=== PATIENT | female | born 1950 | race Caucasian/White ===

== ENCOUNTER → 2017-08-27 | Outpatient (CLI) | payer MEDICARE ==
[~2017-08-27] MED LIST: ATOR20TA65 PO; CYCL5TAB PO; DULO30CA2 PO; FLUTICASONE NASAL; IBUP-2077 PO; LEVO100 PO; LEVO500T2 PO; MONT10TA24 PO; PANT40TA25 PO
== END | disposition home or self-care (01) ==
LOC: SHCH 10:00
PROVIDERS: ATTEND Internal Medicine Cardiovascular Disease
DX: I65.23 Occlusion and stenosis of bilateral carotid arteries (principal); I63.9 Cerebral infarction, unspecified
CPT/HCPCS: 93880

== ENCOUNTER 2017-09-13 17:06 | Emergency (ER) | payer MEDICARE ==
[2017-09-13 17:55] LABS: BASOPHILS % (AUTO) 0.7 % (0.0-5.0); EOSINOPHILS % (AUTO) 3.8 % (0.0-8.0); HEMATOCRIT 35.7 % (36-48); LYMPHOCYTES % (AUTO) 33.1 % (21.0-51.0); MEAN CORPUSCULAR HEMOGLOBIN 32.8 pg (27.0-33.0); MEAN CORPUSCULAR HGB CONC 34.9 g/dL (32.0-36.0); MEAN CORPUSCULAR VOLUME 94.1 fL (79-99); MONOCYTES % (AUTO) 7.6 % (3.0-13.0); NEUTROPHILS % (AUTO) 54.8 % (40.0-77.0); PLATELET COUNT (AUTO) 158 K/uL (130-400); RED BLOOD CELL COUNT(AUTO) 3.79 MIL/uL (4.00-5.50); RED CELL DISTRIBUTION WIDTH 12.7 % (11.0-15.5); WHITE BLOOD COUNT (AUTO) 5.2 K/uL (4.8-10.8)
[2017-09-13 18:05] LABS: CREATININE 0.8 mg/dL (0.5-1.5); POTASSIUM 3.7 mmol/L (3.5-5.1)
[2017-09-13 18:07] LABS: PARTIAL THROMBOPLASTIN TIME 25.4 SEC (26.3-35.5); PROTHROMBIN TIME 10.5 SEC (9.6-11.6)
[2017-09-13 18:31] LABS: ALBUMIN 3.6 g/dL (3.5-5.0); BILIRUBIN,TOTAL 0.3 mg/dL (0.2-1.0); CREATINE KINASE MB 1.2 ng/mL (0.5-3.6); TOTAL PROTEIN, SERUM 7.6 g/dL (6.0-8.3)
== END 2017-09-13 19:56 | disposition home or self-care (01) ==
LOC: EDH 17:06
DX: R42 Dizziness and giddiness (principal); R05 Cough; M19.90 Unspecified osteoarthritis, unspecified site; E78.5 Hyperlipidemia, unspecified; R79.1 Abnormal coagulation profile; Z98.890 Other specified postprocedural states; Z88.2 Allergy status to sulfonamides; Z88.8 Allergy status to other drugs, medicaments and biological substances
CPT/HCPCS: 36415; 71045; 80053; 82550; 82553; 84484; 85025; 85610; 85730; 93005

== ENCOUNTER 2018-04-06 09:55 | Emergency (ER) | payer MEDICARE ==
[~2018-04-06 09:55] MED LIST changes: +ACET-2743 PO; -LEVO500T2 PO; +LEVO75 PO; +LOSA25TA16 PO
== END 2018-04-06 10:17 | disposition home or self-care (01) ==
LOC: EDH 09:55
DX: H05.223 Edema of bilateral orbit (principal); I10 Essential (primary) hypertension; E11.9 Type 2 diabetes mellitus without complications; E78.5 Hyperlipidemia, unspecified; M19.90 Unspecified osteoarthritis, unspecified site; Z88.2 Allergy status to sulfonamides; Z88.6 Allergy status to analgesic agent; Z91.011 Allergy to milk products; Z91.013 Allergy to seafood; Z87.891 Personal history of nicotine dependence
CPT/HCPCS: 99282

== ENCOUNTER 2018-09-17 15:58 | Emergency (ER) | payer MEDICARE ==
[~2018-09-17 15:58] MED LIST changes: -LOSA25TA16 PO; +LOSA25TA41 PO
[2018-09-17 16:41] LABS: APPEARANCE,URINE Clear (CLEAR); BILIRUBIN,URINE Negative (NEGATIVE); COLOR,URINE Yellow (YELLOW); GLUCOSE, URINE (UA) Negative (NEGATIVE); KETONES,URINE Negative (NEGATIVE); LEUKOCYTE ESTERASE ,URINE Small (NEGATIVE); NITRATE,URINE Negative (NEGATIVE); OCCULT BLOOD,URINE Negative (NEGATIVE); PH,URINE 5.5 (5.0-8.0); PROTEIN,URINE Negative (NEGATIVE)
[2018-09-17 16:51] LABS: BASOPHILS % (AUTO) 0.6 % (0.0-5.0); EOSINOPHILS % (AUTO) 1.7 % (0.0-8.0); HEMATOCRIT 35.8 % (36-48); LYMPHOCYTES % (AUTO) 29.3 % (21.0-51.0); MEAN CORPUSCULAR HEMOGLOBIN 32.5 pg (27.0-33.0); MEAN CORPUSCULAR HGB CONC 34.2 g/dL (32.0-36.0); MEAN CORPUSCULAR VOLUME 95.2 fL (79-99); MONOCYTES % (AUTO) 5.8 % (3.0-13.0); NEUTROPHILS % (AUTO) 62.6 % (40.0-77.0); NUCLEATED RED BLOOD CELLS 0.1 % (0.0-0.19); PLATELET COUNT (AUTO) 157 K/uL (130-400); RED BLOOD CELL COUNT(AUTO) 3.76 MIL/uL (4.00-5.50); RED CELL DISTRIBUTION WIDTH 13.1 % (11.0-15.5); WHITE BLOOD COUNT (AUTO) 5.9 K/uL (4.8-10.8)
[2018-09-17 16:53] LABS: BACTERIA,URINE None Seen /HPF (None Seen); RBC,URINE None Seen /HPF (0-1); RENAL EPITHELIAL CELLS,URINE Rare /HPF (None Seen); SQUAMOUS EPITHELIAL CELL,UR 0-2 /HPF (0-2); TRANSITIONAL EPI CELLS,URINE Few /HPF (None Seen); WBC,URINE 0-1 /HPF (0-1)
[2018-09-17 17:02] LABS: CARBON DIOXIDE 29 mmol/L (21-32); CHLORIDE 105 mmol/L (101-111); CREATININE 0.9 mg/dL (0.5-1.5); GLOMERULAR FILTR. RATE CALC 67 mL/min (>60); GLUCOSE,RANDOM 158 mg/dL (70-105); POTASSIUM 3.6 mmol/L (3.5-5.1); SODIUM SERUM 141 mmol/L (136-145); UREA NITROGEN, BLOOD 7 mg/dL (7-18)
[2018-09-17 17:07] LABS: ALANINE AMINOTRANSFERASE 17 U/L (12-78); ALBUMIN 3.6 g/dL (3.5-5.0); ASPARTATE AMINOTRANSFERASE 18 U/L (10-37); BILIRUBIN,TOTAL 0.7 mg/dL (0.2-1.0); TOTAL PROTEIN, SERUM 7.2 g/dL (6.0-8.3)
[2018-09-17 17:43] LABS: LIPASE < 50 U/L (114-286)
== END 2018-09-17 19:01 | disposition home or self-care (01) ==
LOC: EDH 15:58
DX: E11.65 Type 2 diabetes mellitus with hyperglycemia (principal); N39.0 Urinary tract infection, site not specified; R05 Cough; E78.5 Hyperlipidemia, unspecified; I10 Essential (primary) hypertension; M19.90 Unspecified osteoarthritis, unspecified site; J45.909 Unspecified asthma, uncomplicated; Z88.2 Allergy status to sulfonamides; Z91.013 Allergy to seafood; Z91.011 Allergy to milk products; Z88.8 Allergy status to other drugs, medicaments and biological substances; Z98.890 Other specified postprocedural states; Z87.891 Personal history of nicotine dependence; Z79.899 Other long term (current) drug therapy
CPT/HCPCS: 36415; 71045; 80053; 81001; 82948; 83690; 84484; 85025; 93005

== ENCOUNTER 2018-12-14 14:29 | Emergency (ER) | payer MEDICARE ==
[2018-12-14] MEDS ORDERED: SODIUM CHLORIDE 0.9% 1000ML 1,000 ML IV ONE (15:34)
[2018-12-14 15:35] LABS: APPEARANCE,URINE Clear (CLEAR); BILIRUBIN,URINE Negative (NEGATIVE); COLOR,URINE Yellow (YELLOW); GLUCOSE, URINE (UA) Negative (NEGATIVE); KETONES,URINE Negative (NEGATIVE); LEUKOCYTE ESTERASE ,URINE Moderate (NEGATIVE); NITRATE,URINE Negative (NEGATIVE); OCCULT BLOOD,URINE Trace (NEGATIVE); PROTEIN,URINE Negative (NEGATIVE); UROBILINOGEN,URINE 0.2 mg/dL (0.2-1.0)
[2018-12-14] MEDS ORDERED: DiphenhydrAMINE HCL 50 MG/ML VIAL ONE (15:36)
[2018-12-14] MEDS ORDERED: ONDANSETRON HCL 4 MG/2 ML VIAL ONE (15:36)
[2018-12-14 15:44] LABS: BASOPHILS % (AUTO) 0.6 % (0.0-5.0); EOSINOPHILS % (AUTO) 2.8 % (0.0-8.0); HEMATOCRIT 35.5 % (36-48); LYMPHOCYTES % (AUTO) 36.3 % (21.0-51.0); MEAN CORPUSCULAR HEMOGLOBIN 32.9 pg (27.0-33.0); MEAN CORPUSCULAR HGB CONC 34.8 g/dL (32.0-36.0); MEAN CORPUSCULAR VOLUME 94.6 fL (79-99); MONOCYTES % (AUTO) 6.3 % (3.0-13.0); PLATELET COUNT (AUTO) 147 K/uL (130-400); RED BLOOD CELL COUNT(AUTO) 3.75 MIL/uL (4.00-5.50); RED CELL DISTRIBUTION WIDTH 13.1 % (11.0-15.5); WHITE BLOOD COUNT (AUTO) 5.2 K/uL (4.8-10.8)
[2018-12-14 16:02] LABS: BACTERIA,URINE Rare /HPF (None Seen); RBC,URINE 0-1 /HPF (0-1); SQUAMOUS EPITHELIAL CELL,UR Rare /HPF (0-2)
[2018-12-14 16:03] LABS: MUCUS,URINE Rare LPF (None Seen)
[2018-12-14 16:07] LABS: CREATININE 0.8 mg/dL (0.5-1.5); POTASSIUM 3.8 mmol/L (3.5-5.1)
[2018-12-14 16:11] LABS: ALBUMIN 3.9 g/dL (3.5-5.0); BILIRUBIN,DIRECT 0.2 mg/dL (0.0-0.3); BILIRUBIN,TOTAL 0.7 mg/dL (0.2-1.0); TOTAL PROTEIN, SERUM 7.2 g/dL (6.0-8.3)
== END 2018-12-14 18:27 | disposition home or self-care (01) ==
LOC: EDH 14:29
DX: R42 Dizziness and giddiness (principal); R53.1 Weakness; I10 Essential (primary) hypertension; M19.90 Unspecified osteoarthritis, unspecified site; E78.5 Hyperlipidemia, unspecified; E11.9 Type 2 diabetes mellitus without complications; Z88.2 Allergy status to sulfonamides; Z91.013 Allergy to seafood; Z91.011 Allergy to milk products; Z88.8 Allergy status to other drugs, medicaments and biological substances
CPT/HCPCS: 36415; 80048; 80076; 81001; 84484; 85025; 93005; 96361; 96374; 96375; 99285; J1200; J2405; J7030

== ENCOUNTER 2020-08-20 13:39 | Emergency (ER) | payer OTHER, MEDICARE ==
[~2020-08-20 13:39] MED LIST changes: -ACET-2743 PO; -CYCL5TAB PO; -FLUTICASONE NASAL; +GLIP5TAB11 PO; -LEVO100 PO; +LEVO500T2 PO; +METF-446 PO; -MONT10TA24 PO; -PANT40TA25 PO; +PANT40TA54 PO
[2021-01-10] MEDS ORDERED: LEVO500T90 PO (18:46)
== END 2020-08-20 14:28 | disposition home or self-care (01) ==
LOC: EDH 13:39
DX: E11.9 Type 2 diabetes mellitus without complications (principal); Z76.0 Encounter for issue of repeat prescription; I10 Essential (primary) hypertension; E78.5 Hyperlipidemia, unspecified; M19.90 Unspecified osteoarthritis, unspecified site; Z88.2 Allergy status to sulfonamides; Z91.013 Allergy to seafood; Z91.011 Allergy to milk products; Z88.8 Allergy status to other drugs, medicaments and biological substances

== ENCOUNTER 2021-01-10 16:11 | Emergency (ER) | payer MEDICARE ==
[~2021-01-10] VITALS: Ht 165.1 cm; Wt 106.6 kg
[2021-01-10 16:13] VITALS: BP 95/77
[2021-01-10] MEDS ORDERED: ACETAMINOPHEN WITH CODEINE 1 TAB TAB PO ONE (17:00)
[2021-01-10] MEDS ORDERED: ALBUTEROL INHALER 90MCG/INH IH PRN (17:00)
[2021-01-10 17:05] LABS: BASOPHILS % (AUTO) 0.2 % (0.0-5.0); EOSINOPHILS % (AUTO) 0.2 % (0.0-8.0); HEMATOCRIT 34.1 % (36-48); LYMPHOCYTES % (AUTO) 14.6 % (21.0-51.0); MEAN CORPUSCULAR HEMOGLOBIN 32.6 pg (27.0-33.0); MEAN CORPUSCULAR HGB CONC 33.7 g/dL (32.0-36.0); MEAN CORPUSCULAR VOLUME 96.6 fL (79-99); MONOCYTES % (AUTO) 5.7 % (3.0-13.0); NEUTROPHILS % (AUTO) 78.6 % (40.0-77.0); PLATELET COUNT (AUTO) 199 K/uL (130-400); RED BLOOD CELL COUNT(AUTO) 3.53 MIL/uL (4.00-5.50); WHITE BLOOD COUNT (AUTO) 13.7 K/uL (4.8-10.8)
[2021-01-10 17:30] LABS: B-TYPE NATRIURETIC PEPTIDE 79 pg/mL (0-100)
[2021-01-10 17:39] LABS: ALBUMIN 2.8 g/dL (3.5-5.0); BILIRUBIN,TOTAL 1.9 mg/dL (0.2-1.0); CREATININE 0.7 mg/dL (0.5-1.5); POTASSIUM 3.8 mmol/L (3.5-5.1); TOTAL PROTEIN, SERUM 7.2 g/dL (6.0-8.3)
[2021-01-10] MEDS ORDERED: CEFTRIAXONE 1G VIAL IVP ONE (18:00)
[2021-01-10] MEDS ORDERED: LEVO500T89 PO (18:46)
[2021-01-10] MEDS ORDERED: D-ME1POW16 PO (18:46)
[2021-01-10] MEDS ORDERED: AZIT500T PO (18:46)
[2021-01-10 19:07] VITALS: BP 120/62
== END 2021-01-10 19:22 | disposition home or self-care (01) ==
LOC: EDH 16:11
DX: J18.9 Pneumonia, unspecified organism (principal); J45.909 Unspecified asthma, uncomplicated; E11.9 Type 2 diabetes mellitus without complications; E78.00 Pure hypercholesterolemia, unspecified; I10 Essential (primary) hypertension; E03.9 Hypothyroidism, unspecified; Z20.822 Contact with and (suspected) exposure to COVID-19; Z88.2 Allergy status to sulfonamides; Z91.011 Allergy to milk products; Z91.030 Bee allergy status; Z88.8 Allergy status to other drugs, medicaments and biological substances; Z79.84 Long term (current) use of oral hypoglycemic drugs; Z79.899 Other long term (current) drug therapy
CPT/HCPCS: 36415; 71045; 80053; 83605; 83880; 84484; 85025; 87040 ×2; 87635; 87804 ×2; 87880; 99284; C9803

== ENCOUNTER 2023-12-14 16:12 | Emergency (ER) | payer MEDICARE, MEDICAID ==
[~2023-12-14] VITALS: Ht 165.1 cm; Wt 94.8 kg
[~2023-12-14 16:12] MED LIST changes: +AZIT500T PO; +D-ME1POW16 PO; -GLIP5TAB11 PO; +GLIP5TAB15 PO; +LEVO-70 PO
[2023-12-14 16:38] LABS: BASOPHILS # (AUTO) 0.05 K/uL (0.00-0.20); BASOPHILS % (AUTO) 0.7 % (0.0-5.0); EOSINOPHILS # (AUTO) 0.24 K/uL (0.00-0.70); EOSINOPHILS % (AUTO) 3.5 % (0.0-8.0); HEMATOCRIT 33.7 % (36-48); IMMATURE GRANULOCYTE ABSOLUTE 0.02 K/uL (0-1); LYMPHOCYTES # (AUTO) 2.8 K/uL (1.0-4.8); LYMPHOCYTES % (AUTO) 39.9 % (21.0-51.0); MEAN CORPUSCULAR HEMOGLOBIN 32.7 pg (27.0-33.0); MEAN CORPUSCULAR HGB CONC 34.4 g/dL (32.0-36.0); MEAN CORPUSCULAR VOLUME 94.9 fL (79-99); MONOCYTES # (AUTO) 0.4 K/uL (0.1-1.0); MONOCYTES % (AUTO) 6.2 % (3.0-13.0); NEUTROPHILS # (AUTO) 3.4 K/uL (1.8-7.7); NEUTROPHILS % (AUTO) 49.4 % (40.0-77.0); PLATELET COUNT (AUTO) 159 K/uL (130-400); RED BLOOD CELL COUNT(AUTO) 3.55 MIL/uL (4.00-5.50); RED CELL DISTRIBUTION WIDTH 12.9 % (11.0-15.5); WHITE BLOOD COUNT (AUTO) 6.9 K/uL (4.8-10.8)
[2023-12-14 16:55] LABS: CREATININE 1.4 mg/dL (0.5-1.0); POTASSIUM 3.8 mmol/L (3.5-5.1)
[2023-12-14 16:57] LABS: ALBUMIN 3.8 g/dL (3.5-5.0); BILIRUBIN,TOTAL 0.5 mg/dL (0.2-1.0); TOTAL PROTEIN, SERUM 7.5 g/dL (6.0-8.3)
[2023-12-14] MEDS: 0.9%NACL 1000ML 1,000 ML IV ONE (19:00)
[2023-12-14 19:45] VITALS: BP 153/85; PULSE 61; RESP 17; O2SAT 97
== END 2023-12-14 20:13 | disposition home or self-care (01) ==
LOC: EDH 16:12
DX: D64.9 Anemia, unspecified (principal); I12.9 Hypertensive chronic kidney disease with stage 1 through stage 4 chronic kidney disease, or unspecified chronic kidney disease; E11.22 Type 2 diabetes mellitus with diabetic chronic kidney disease; N18.9 Chronic kidney disease, unspecified; E86.0 Dehydration; E03.9 Hypothyroidism, unspecified; E78.00 Pure hypercholesterolemia, unspecified; J45.909 Unspecified asthma, uncomplicated; Z79.84 Long term (current) use of oral hypoglycemic drugs; Z79.899 Other long term (current) drug therapy; Z98.890 Other specified postprocedural states; Z88.2 Allergy status to sulfonamides; Z88.5 Allergy status to narcotic agent; Z91.030 Bee allergy status
CPT/HCPCS: 99285; 71045; 84484; 80053; 85025; 36415; 93005; J7030

== ENCOUNTER 2025-04-12 17:34 | Emergency (ER) | payer OTHER, MEDICAID ==
[~2025-04-12] VITALS: Ht 165.1 cm; Wt 92.5 kg
[2025-04-12 17:35] VITALS: BP 100/67; PULSE 89; RESP 17; TEMP 98.1; O2SAT 96
--- NOTE | 2025-04-12 18:52 | ERN ---
ED Note History of Present Illness Stated Complaint: FALL Chief Complaint: Mechanical Fall Time Seen by MD: 17:36 Time Seen by Midlevel: 17:40 Dictation: 74 Year old female with a history of arthritis, cholesterol, DM. Allergies: Coded Allergies: Sulfa (Sulfonamide Antibiotics) (Verified Allergy, Unknown, 08/07/15) meperidine (Unverified Allergy, Unknown, RASH, 01/16/18) milk (Unverified Adverse Reaction, Unknown, ABDOMINAL BLOATDENESS, 08/07/15) Uncoded Allergies: BEES (Allergy, Unknown, 08/07/15) CORN, WHEAT (Adverse Reaction, Unknown, 08/07/15) Home Meds Active Scripts D-Methorphan/PE/Acetaminophen (Theraflu Ms Severe Cold Pckt) 1 Each Powd.pack, 1 EACH PO QIDP, #20 PACK Prov:NAILA RUVALCABA 01/10/21 Azithromycin (Zithromax) 500 Mg Tablet, 500 MG PO DAILY, #5 TAB Prov:NAILA RUVALCABA 01/10/21 Levofloxacin (Levofloxacin) 500 Mg Tablet, 500 MG PO DAILY, #10 TAB Prov:NAILA RUVALCABA 01/10/21 Levofloxacin (Levaquin) 500 Mg Tablet, 500 MG PO DAILY for 7 Days, #7 TAB Prov:JOVANA ARSHAD Jr., MD 03/09/19 Glipizide (Glipizide) 5 Mg Tablet, 2.5 MG PO BIDMEALS for 30 Days, #60 TAB Prov:JOVANA ARSHAD Jr., MD 03/09/19 Reported Medications Metformin HCl (Metformin HCl) 1,000 Mg Tablet, 1000 MG PO BID, TAB 03/08/19 Losartan Potassium (Losartan Potassium) 25 Mg Tablet, 25 MG PO DAILY, TAB 01/16/18 Levothyroxine Sodium (Levothroid/Synthroid) 75 Mcg Tab, 75 MCG PO DAILYBKFST, TAB 01/16/18 Pantoprazole Sodium (Pantoprazole Sodium) 40 Mg Tablet.dr, 40 MG PO DAILY, TAB 07/26/16 Duloxetine HCl (Cymbalta) 30 Mg Capsule.dr, 30 MG PO HS, CAP 08/07/15 Ibuprofen (Ibuprofen 800 mg Tab) 800 Mg Tab, 800 MG PO TID PRN for PAIN, TAB 12/19/14 Atorvastatin Calcium (Atorvastatin Calcium) 20 Mg Tablet, 20 MG PO AM, TAB 12/19/14 Past Medical History Past Medical History: Arthritis, Diabetes-Type II, High Cholesterol, Hypertension Surgical History: Other Surgical History Other: BILATERAL KNEE REPLACEMENT, BILATERAL HIP SX AND LEFT ROTATOR CUFF History: Not Applicable Review of System Dictation Constitutional: Negative for fever,chills, and weight loss Eyes: Negative for injury, pain,redness, and discharge ENT: Negative for injury,pain or swelling Cardiovascular: Negative for chest pain, palpitations, and edema Respiratory: Negative for shortness of breath, cough, and wheezing, Abdomen/GI: Negative for abdominal pain, nausea, vomiting, diarrhea, and constipation Back: Negative for injury and pain : Negative for injury, bleeding and discharge MS/Extremity: Negative for injury and deformity, complaining of bilateral leg pain, neck pain Skin: Negative for rash, and discoloration Neuro: Negative for headache, weakness, numbness, tingling, and seizure Psych: Negative for suicide ideation, homicidal ideation, and hallucinations Review of Systems: was completed Initial Vital Sign VS Vital Signs Date Time Temp Pulse Resp B/P (MAP) Pulse Ox O2 Delivery O2 Flow Rate FiO2 04/12/25 17:35 98.1 89 17 100/67 96 Room Air* 0 21 Physical Exam Dictation General: awake, alert, NAD Head/Face: Normocephalic, atraumatic Eyes: PERRL, EOMI, vision at baseline ENT: oral cavity clear, TMs clear, no signs of infection Neck: Trachea midline, supple, no nuchal rigidity Cardiovascular: RRR, normal S1/S2, No MRGs, no JVD Respiratory: CTAB, no respiratory distress, No rales or wheezes Abdomen: Soft, non-tender, non-distended, normal bowel sounds, no guarding or rebound. Skin: Warm, dry, normal turgor, no rash MS/Extremity: Pulses equal, no cyanosis, neurovascular intact, FROM Neuro: COAx4, GCS 15, strength 5/5, CN 2-12 intact, normal cerebellar exam, normal gait, Psych: Normal behavior, mood, and affect normal Results (Laboratory/Radiology) Labs Reviewed?: Yes X-RAY Comment: [place] [id number] [place] [id number] IMAGING REPORT Signed PATIENT: BELINDA BERGMAN MR#: [id number] : 1950 SEX: F AGE: 74 LOCATION: [facility] ORDER 41 STATUS: [facility] REPORT#: [id number] SERVICE 40 REASON: fall ORDERING PHYSICIAN: FELICIANO YODER CNP PROCEDURE: PELVIS - PELVIS 1-2VWS EXAM: CR Pelvis, 2 View. CLINICAL HISTORY: fall COMPARISON: None provided. FINDINGS: BONES: Bilateral hip arthroplasties No fracture. No dislocation JOINTS: No dislocation. The joint spaces are normal. SOFT TISSUES: The soft tissues are unremarkable. IMPRESSION: 1. Bilateral hip arthroplasties 2. No fracture. No dislocation /[place] DICTATED BY: CHRISTIANO WING MD DATE: 04/12/252129 ELECTRONICALLY SIGNED BY: CHRISTIANO WING MD DATE: 04/12/252129 CT Scan Comment: [place] [address] IMAGING REPORT Signed PATIENT: BELINDA BERGMAN MR#: [id number] : 1950 SEX: F AGE: 74 LOCATION: ED ORDER 41 STATUS: REG ER [facility] REPORT#: [id number] SERVICE 40 REASON: fall ORDERING PHYSICIAN: FELICIANO YODER CNP PROCEDURE: C SPIN WO - CT CERVICAL SPINE W/O CONTRAST EXAMINATION: CT Cervical Spine Without IV Contrast CLINICAL HISTORY: Patient presents after fall. COMPARISON: None provided. TECHNIQUE: Axial computed tomography images of the cervical spine without intravenous contrast. Sagittal and coronal reformatted images were generated. FINDINGS: ALIGNMENT: Bony alignment is anatomic. DEGENERATIVE CHANGES: Multilevel mild spondylotic changes with marginal osteophytes, uncovertebral hypertrophy, and facet joint arthropathy. Reduced disc height at C5-C6. No significant canal stenosis or neural foraminal narrowing. SOFT TISSUES: The prevertebral soft tissues are within normal limits. BONES: No acute fracture or aggressive-appearing osseous lesion. IMPRESSION: Multilevel mild cervical spondylosis with reduced C5-C6 disc height. No acute cervical spine abnormality. /[place] DICTATED BY: CHRISTIANO WING MD DATE: 04/12/252025 ELECTRONICALLY SIGNED BY: CHRISTIANO WING MD DATE: 04/12/25[address] [address] IMAGING REPORT Signed PATIENT: BELINDA BERGMAN MR#: [id number] : 1950 SEX: F AGE: 74 LOCATION: [facility] ORDER 41 STATUS: [facility] REPORT#: [id number] SERVICE 40 REASON: fall ORDERING PHYSICIAN: FELICIANO YODER CNP PROCEDURE: HEAD WO - CT HEAD/BRAIN W/O CONTRAST EXAMINATION: CT Head Without IV Contrast CLINICAL HISTORY: Patient presents after fall. COMPARISON: None provided. TECHNIQUE: Axial computed tomography images of the head/brain without intravenous contrast. FINDINGS: BRAIN: No acute hemorrhage, mass lesion, or CT evidence of acute territorial infarct. Periventricular hypodensities concerning for chronic microangiopathic ischemic changes. Mild diffuse cerebral atrophy with prominence of the cortical sulci, basal cisterns, and bilateral sylvian fissures. No midline shift or extra-axial collections. VENTRICLES: No hydrocephalus. ORBITS: The orbits are unremarkable. SINUSES AND MASTOIDS: The paranasal sinuses and mastoid air cells are clear. BONES: No fracture. SOFT TISSUES: Unremarkable. IMPRESSION: Chronic microangiopathic ischemic changes. Mild diffuse cerebral atrophy. No acute intracranial abnormality. /[place] DICTATED BY: CHRISTIANO WING MD DATE: 04/12/252024 ELECTRONICALLY SIGNED BY: CHRISTIANO WING MD DATE: 04/12/252024 ED Course ED Course Orders Procedure Category Date Status Time Ct Head/Brain W/O CT 04/12/25 Resulted Contrast 17:41 Ct Cervical Spine W/O CT 04/12/25 Resulted Contrast 17:41 Pelvis 1-2vws RAD 04/12/25 Resulted 17:41 Knee 3 Vw Bilateral RAD 04/12/25 Taken 17:41 Femur 2vw Right RAD 04/12/25 Taken 20:12 Tramadol Hcl (Ultram) PHA 04/12/25 In Process 20:30 Current Medications Medications (Trade) Dose Ordered Sig/Buddy Route PRN Reason Start Time Stop Time Status Last Admin Dose Admin Tramadol HCl (UltRAM) 50 mg ONCE PO 04/12/25 20:30 04/12/25 23:59 04/12/25 20:28 Vital Signs Date Time Temp Pulse Resp B/P (MAP) Pulse Ox O2 Delivery O2 Flow Rate FiO2 04/12/25 17:35 98.1 89 17 100/67 98 Room Air 0 04/12/25 17:35 98.1 89 17 100/67 96 Room Air* 0 21 Medical Decision Making MDM MDM: 74 Year old female with a history of arthritis, cholesterol, DM status post fall. Patient states she usually uses wheelchair does not walk often but was trying to ambulate from the wheelchair to her room when she fell backwards. Denies hitting her head, denies any pain, denies any LOC, denies any blood thinners. Patient is complaining of right leg pain. CT of the head, neck no acute findings. X-rays of the hip, fever and knee are within normal range. No acute deformities or fractures. Differential diagnosis: Hip fracture, femur fracture, hip contusion Rationale: Tests considered and ordered secondary to shared decision making include: Previous outside records reviewed: Old ER visits. Risk of complication and/or morbidity or mortality of patient management: None Medications-Per medication reconciliation Need for hospitalization: Patient does not meet criteria for hospitalization. Need for emergency major/minor surgery: No There are no social concerns with this patient. Prescription drug management Prescriptions will include symptomatic care Patient's prior external medical records from other ER visits were reviewed by me as indicated. Prior testing and results from previous visits were reviewed. Prior tests were taken into account with medical decision making and resource utilization, independent historian/historians were used to obtain complete medical history. I independently interpreted the test that were performed, results were reviewed by me and considered findings on radiology if ordered. Medical management and examination interpretation discussions were had by me with other qualified healthcare professionals as indicated for the patient's care. DX & DISP Disposition: Discharge Departure Impression: Primary Impression: Fall Additional Impression: Contusion of hip, right Condition: Stable Additional Instructions: Your CT scans and x-rays are normal. You did not break anything. You can take Tylenol or Motrin [id number] for pain control. Follow up with your primary care provider. Referrals: ROSY CADE DO (PCP) Time of Disposition: 20:41 I have reviewed the case, and I agree with, Diagnosis and Plan FELICIANO YODER PEDIATRIC PATHOLOGIST Apr 12, 2025 18:52
--- NOTE | 2025-04-12 19:26 | HMCIMG ---
EXAMINATION: CT Head Without IV Contrast CLINICAL HISTORY: Patient presents after fall. COMPARISON: None provided. TECHNIQUE: Axial computed tomography images of the head/brain without intravenous contrast. FINDINGS: BRAIN: No acute hemorrhage, mass lesion, or CT evidence of acute territorial infarct. Periventricular hypodensities concerning for chronic microangiopathic ischemic changes. Mild diffuse cerebral atrophy with prominence of the cortical sulci, basal cisterns, and bilateral sylvian fissures. No midline shift or extra-axial collections. VENTRICLES: No hydrocephalus. ORBITS: The orbits are unremarkable. SINUSES AND MASTOIDS: The paranasal sinuses and mastoid air cells are clear. BONES: No fracture. SOFT TISSUES: Unremarkable. IMPRESSION: Chronic microangiopathic ischemic changes. Mild diffuse cerebral atrophy. No acute intracranial abnormality. /[place]
--- NOTE | 2025-04-12 19:26 | HMCIMG ---
EXAMINATION: CT Cervical Spine Without IV Contrast CLINICAL HISTORY: Patient presents after fall. COMPARISON: None provided. TECHNIQUE: Axial computed tomography images of the cervical spine without intravenous contrast. Sagittal and coronal reformatted images were generated. FINDINGS: ALIGNMENT: Bony alignment is anatomic. DEGENERATIVE CHANGES: Multilevel mild spondylotic changes with marginal osteophytes, uncovertebral hypertrophy, and facet joint arthropathy. Reduced disc height at C5-C6. No significant canal stenosis or neural foraminal narrowing. SOFT TISSUES: The prevertebral soft tissues are within normal limits. BONES: No acute fracture or aggressive-appearing osseous lesion. IMPRESSION: Multilevel mild cervical spondylosis with reduced C5-C6 disc height. No acute cervical spine abnormality. /[place]
--- NOTE | 2025-04-12 20:31 | HMCIMG ---
EXAM: CR Pelvis, 2 View. CLINICAL HISTORY: fall COMPARISON: None provided. FINDINGS: BONES: Bilateral hip arthroplasties No fracture. No dislocation JOINTS: No dislocation. The joint spaces are normal. SOFT TISSUES: The soft tissues are unremarkable. IMPRESSION: 1. Bilateral hip arthroplasties 2. No fracture. No dislocation /[place]
--- NOTE | 2025-04-12 21:43 | HMCIMG ---
EXAM: CR Right Femur, 5 views. CLINICAL HISTORY: Fall. COMPARISON: None provided. FINDINGS: No acute fracture or aggressive appearing osseous lesion. Mild osteopenia. Right hip and right knee joint replacement prosthesis in place, no evidence of hardware failure. The soft tissues are unremarkable. IMPRESSION: No acute bony abnormality is evident. Mild osteopenia. Right hip and right knee joint replacement prosthesis in place, no evidence of hardware failure. /[place]
--- NOTE | 2025-04-13 10:47 | HMCIMG ---
EXAM: CR Right Knee, 2 views. CLINICAL HISTORY: Fall. COMPARISON: None provided. FINDINGS: Right knee joint replacement with prosthesis in place. No acute fracture or aggressive appearing osseous lesion. Joint spaces are within normal limits. There is no joint effusion appreciated. The soft tissues are unremarkable. IMPRESSION: * Right knee joint replacement with prosthesis in place. * No acute osseous abnormality. /[place]
== END 2025-04-12 21:00 | disposition home or self-care (01) ==
LOC: EDH 17:34
DX: S70.01XA Contusion of right hip, initial encounter (principal); E11.9 Type 2 diabetes mellitus without complications; E78.00 Pure hypercholesterolemia, unspecified; I10 Essential (primary) hypertension; M19.90 Unspecified osteoarthritis, unspecified site; Z88.2 Allergy status to sulfonamides; Z91.0110 Allergy to milk products, unspecified; Z91.018 Allergy to other foods; Z88.5 Allergy status to narcotic agent; Z79.899 Other long term (current) drug therapy; Z79.84 Long term (current) use of oral hypoglycemic drugs; Z96.653 Presence of artificial knee joint, bilateral; Z47.1 Aftercare following joint replacement surgery; Z96.643 Presence of artificial hip joint, bilateral; W18.39XA Other fall on same level, initial encounter; Y93.89 Activity, other specified; Y92.89 Other specified places as the place of occurrence of the external cause; Y99.8 Other external cause status
CPT/HCPCS: 70450; 72125; 72170; 73552; 99284